=== PATIENT | male | born 1990 | race Caucasian/White ===

== ENCOUNTER 2020-12-26 09:53 | Emergency (ER) | payer BC ==
[~2020-12-26] VITALS: Ht 170.2 cm; Wt 83.1 kg
--- NOTE | 2020-12-26 12:01 | REP ---
INDICATION: right frontal trauma ? LOC. COMPARISON: None. TECHNIQUE: Helical scanning is acquired. 5 mm axial images were reformatted. Coronal MPR images were generated. FINDINGS: Bone window settings demonstrate an intact bony calvarium. There is no evidence of skull fracture or incidental bony calvarial lesion. No intraorbital abnormality is seen. On soft tissue window setting images; the lateral, third, and fourth ventricles are normal in size and position. Thomas-white differentiation pattern is normal above and below the tentorium. There are is no evidence of intracranial hemorrhage. No mass, edema, infarction, or midline shift is seen. No extra-axial fluid collection is appreciated. There is mild right frontal and superior orbital scalp swelling. There is also mild mucosal thickening in the ethmoid air cells bilaterally. IMPRESSION: Mild ethmoid sinus mucosal thickening and right frontal and superior orbital scalp swelling. No skull fracture or intracranial injury. Otherwise negative head CT.. <Electronically signed by Edwin Bob > 12/26/20 [id number]
[2020-12-26] MEDS ORDERED: IBUPROFEN 600MG TAB PO ONE (12:10)
[2020-12-26] MEDS ORDERED: ACETAMINOPHEN TAB 650MG DOSE (2X325MG) PO ONE (12:10)
[2020-12-26 12:23] VITALS: BP 120/68
== END 2020-12-26 12:23 | disposition home or self-care (01) ==
LOC: M ED 09:53
DX: S06.0X0A Concussion without loss of consciousness, initial encounter (principal); S00.81XA Abrasion of other part of head, initial encounter; S50.02XA Contusion of left elbow, initial encounter; Y04.8XXA Assault by other bodily force, initial encounter; Y07.9 Unspecified perpetrator of maltreatment and neglect; Y92.410 Unspecified street and highway as the place of occurrence of the external cause; F17.210 Nicotine dependence, cigarettes, uncomplicated